=== PATIENT | male | born 1950 | race Caucasian/White ===

== ENCOUNTER 2021-09-01 14:31 | Inpatient (IN) | payer MEDICARE ==
[~2021-09-01] VITALS: Ht 185.4 cm; Wt 127.0 kg
--- NOTE | 2021-09-01 14:35 | NUR ---
DR MONAE AT BEDSIDE
--- NOTE | 2021-09-01 14:35 | NUR ---
BETH MOSS [address] [facility] "told a staff that he was having SI last tue with a plan to shoot self. Pt is bedbound and no access to weapon". TO ER BED 4, TASIA TO MONITOR, CHANGED TO HOSP GOWN, WARM BLANKET PROVIDED. AWAITING MD OSEI
[2021-09-01] MEDS ORDERED: HYDR100T27 PO (15:08)
[2021-09-01] MEDS ORDERED: TAMS-12 PO (15:08)
[2021-09-01] MEDS ORDERED: LOPE2CAP14 PO (15:08)
[2021-09-01] MEDS ORDERED: VALS320T16 PO (15:08)
[2021-09-01] MEDS ORDERED: FURO-144 PO (15:08)
[2021-09-01] MEDS ORDERED: BUPR-54 PO (15:08)
[2021-09-01] MEDS ORDERED: LIRA0.6P SQ (15:08)
[2021-09-01] MEDS ORDERED: MAG30ORA PO (15:08)
[2021-09-01] MEDS ORDERED: DULO60CA64 PO (15:08)
[2021-09-01] MEDS ORDERED: METH750T3 PO (15:08)
[2021-09-01] MEDS ORDERED: AMLO-213 PO (15:08)
[2021-09-01] MEDS ORDERED: ACET-2605 PO (15:08)
[2021-09-01] MEDS ORDERED: ACET-868 PO (15:08)
[2021-09-01] MEDS ORDERED: ROSU20TA32 PO (15:08)
[2021-09-01] MEDS ORDERED: DICL100G26 TP (15:08)
[2021-09-01] MEDS ORDERED: MAGN400O6 PO (15:08)
[2021-09-01] MEDS ORDERED: DOCU-141 PO (15:08)
[2021-09-01] MEDS ORDERED: CARV12.52 PO (15:08)
[2021-09-01 16:04] LABS: BASOPHILS % (AUTO) 0.3 % (0.0-2.0); EOSINOPHILS % (AUTO) 4.1 % (0.0-6.0); HEMATOCRIT 38 % (39-51); HEMOGLOBIN 12.7 g/dL (13.5-17.5); LYMPHOCYTES # (AUTO) 1.1 K/uL (0.8-4.8); LYMPHOCYTES % (AUTO) 14.6 % (20.0-44.0); MEAN CORPUSCULAR HGB CONC 34 g/dl (31.0-36.0); MEAN CORPUSCULAR VOLUME 84 fL (80-96); MONOCYTES # (AUTO) 0.9 K/uL (0.1-1.30); MONOCYTES % (AUTO) 11.9 % (2.0-12.0); NEUTROPHILS # (AUTO) 5.2 K/uL (1.8-8.9); NEUTROPHILS % (AUTO) 69.1 % (43.0-81.0); PLATELET COUNT (AUTO) 191 K/uL (150-450); WHITE BLOOD COUNT (AUTO) 7.5 K/uL (4.3-11.0)
--- NOTE | 2021-09-01 16:23 | NUR ---
URINE SAMPLE COLLECTED VIA STRAIGHT CATHETER, SENT TO LAB
[2021-09-01 16:51] LABS: CALCIUM, SERUM 8.4 mg/dL (8.5-10.1); CARBON DIOXIDE 27 mmol/L (21-32); CHLORIDE 104 mmol/L (98-107); GLUCOSE 95 mg/dL (74-106); POTASSIUM 3.4 mmol/L (3.5-5.1); SODIUM SERUM 140 mmol/L (136-145); UREA NITROGEN, BLOOD 19 mg/dL (7-18)
[2021-09-01 17:04] LABS: ALANINE AMINOTRANSFERASE 16 U/L (12-78); ALBUMIN 3.7 g/dL (3.4-5.0); ALCOHOL, BLOOD < 3 mg/dL (0-0); ALKALINE PHOSPHATASE 56 U/L (46-116); ASPARTATE AMINOTRANSFERASE 15 U/L (15-37); BILIRUBIN,DIRECT 0.2 mg/dL (0.0-0.2); BILIRUBIN,TOTAL 1.1 mg/dL (0.2-1.0); TOTAL PROTEIN, SERUM 7.1 g/dL (6.4-8.2)
[2021-09-01 17:05] LABS: ACETAMINOPHEN < 2 ug/ml (10-30)
[2021-09-01 17:33] LABS: BILIRUBIN,URINE NEGATIVE (NEGATIVE); COLOR,URINE YELLOW (YELLOW); LEUKOCYTE ESTERASE ,URINE NEGATIVE (NEGATIVE); NITRITE, URINE NEGATIVE (NEGATIVE); PROTEIN,URINE NEGATIVE (NEGATIVE); UGLUCOSE NEGATIVE (NEGATIVE)
--- NOTE | 2021-09-01 17:39 | NUR ---
COVID SWAB DONE AND SENT TO LAB
--- NOTE | 2021-09-01 19:00 | NUR ---
CALLED CERTIFIED FORKLIFT OPERATOR, CHARLIE, AND WAS NOTIFIED THAT THE PT HAS AN ETA OF 2000
--- NOTE | 2021-09-01 19:30 | NUR ---
RECEIVED REPORT FROM JEFERSON MONTERROSO FOR CIARA
--- NOTE | 2021-09-01 19:46 | NUR ---
PT RESTING COMFORTABLY IN BED, PROVIDED HIM WITH FOOD. WILL CONTINUE TO MONITOR
--- NOTE | 2021-09-01 19:55 | NUR ---
PRODUCT DEVELOPMENT ASSISTANT PINKY AT BEDSIDE
--- NOTE | 2021-09-01 20:23 | NUR ---
HOLD 5150 09/01/2021 @ 2013 BY CHARLIE OSEI
--- NOTE | 2021-09-01 20:33 | NUR ---
REPORT GIVEN TO FAA RN FOR CIARA
[2021-09-01] MEDS ORDERED: LORAZEPAM 0.5 MG TABLET PO PRN (21:30)
[2021-09-01] MEDS ORDERED: MAGNESIUM HYDROXIDE 30 ML UDC PO PRN (21:30)
[2021-09-01] MEDS ORDERED: BLOOD SUGAR DIAGNOSTIC 1 EACH STRIP IN ONE (21:30)
[2021-09-01] MEDS ORDERED: MAG HYDROX/AL HYDROX/SIMETH 30 ML UDC PO PRN (21:30)
[2021-09-01] MEDS ORDERED: POTASSIUM CHLORIDE 20 MEQ TAB.PRT.SR PO ONE (23:00)
[2021-09-01] MEDS ORDERED: METHOCARBAMOL (750MG) 750 MG TABLET PO PRN (23:30)
[2021-09-01] MEDS ORDERED: DOCUSATE SODIUM 100 MG CAPSULE PO PRN (23:30)
--- NOTE | 2021-09-02 03:02 | NUR ---
GPS ARCH PAD CEMENTER NOTES: RECEIVED A 70-Y/O MALE FROM ER ORIGINALLY FROM SNF. PATIENT IS ON A 5150 FOR DTS. HOLD WAS PLACED ON 09/01/21 AT 2013. PER HOLD, PATIENT WAS BROUGHT TO [facility] ER FROM [facility] D/T SUICIDAL IDEATION AND DEPRESSION. UPON FACE TO FACE EVALUATION, PATIENT IS ALERT AND ORIENTED X3, DISORGANIZED, PASSIVE, TIRED, LABILE, GUARDED, BLE WEAKNESS/UNABLE TO AMBULATE, INCONTINENT. PATIENT REFUSED TO SIGN ALL ADMISSION PAPERWORK, PER PATIENT HE IS TIRED. SKIN ASSESSMENT DONE, PICTURES TAKEN AND PLACED IN PATIENT CHART. PATIENT DENIES SI AT THIS TIME. DENIES PAIN. [id number], MRSA PENDING. PATIENT HANDBOOK AND PRESCRIPTION MEDICATIONS GUIDE GIVEN TO PATIENT. PATIENT HAS BEEN ORIENTED TO UNIT POLICY. BELONGINGS WERE INVENTORIED AND CHECKED FOR CONTRABAND. OFFERED PNEUMONIA VACCINE BUT PATIENT REFUSED. PATIENT IS UNDER THE PSYCHIATRIC CARE OF DR. YOUNG AND MEDICAL CARE OF SRINIVASA HUNTER. PATIENT BROTHER HORTENCIA CALLED AND INFORMED OF PATIENT ADMISSION. BED IN LOW LOCKED POSITION. SIDE RAILS UP X2. SAFETY PRECAUTIONS MAINTAINED. ALL PATIENT CARE NEEDS HAVE BEEN MET ANTICIPATED. WILL CONTINUE TO MONITOR Q15 MINS FOR MOOD, SAFETY AND BEHAVIOR.
[2021-09-02 05:38] VITALS: BP 130/68
[2021-09-02 07:28] LABS: ALANINE AMINOTRANSFERASE 13 U/L (12-78); ALBUMIN 3.4 g/dL (3.4-5.0); ALKALINE PHOSPHATASE 61 U/L (46-116); ASPARTATE AMINOTRANSFERASE 11 U/L (15-37); BILIRUBIN,TOTAL 0.7 mg/dL (0.2-1.0); CARBON DIOXIDE 15 mmol/L (21-32); CHLORIDE 108 mmol/L (98-107); CREATININE 1.1 mg/dL (0.6-1.3); GLUCOSE 112 mg/dL (74-106); POTASSIUM 3.6 mmol/L (3.5-5.1); SODIUM SERUM 142 mmol/L (136-145); TOTAL PROTEIN, SERUM 7.1 g/dL (6.4-8.2); UREA NITROGEN, BLOOD 23 mg/dL (7-18)
[2021-09-02 07:50] LABS: THYROID STIMULATING HORMONE 1.536 uIU/mL (0.358-3.74)
[2021-09-02 08:00] VITALS: BP 149/90
[2021-09-02] MEDS: AMLODIPINE BESYLATE 10 MG TABLET PO SCH (08:41)
[2021-09-02] MEDS: CARVEDILOL 12.5 MG TABLET PO SCH ×2 (08:42→21:24)
[2021-09-02] MEDS: hydrALAZINE HCL 50 MG TABLET PO SCH ×2 (08:42→21:24)
[2021-09-02] MEDS: VALSARTAN 80 MG TABLET PO SCH (08:43)
[2021-09-02] MEDS ORDERED: LIRAGLUTIDE 0.6 MG SQ SCH (09:00)
--- NOTE | 2021-09-02 09:49 | NUR ---
DODIE Initial Discharge Plan: Patient currently resides at a correction [facility] located at [address] [place] [address]; ([phone]). Patient would want to return back to his correction home when he is ready for discharge. DODIE will coordinate discharge with MD, pt, and family for appropriate placement.
--- NOTE | 2021-09-02 09:49 | NUR ---
DODIE Clinical Note: Patient placed on a 5150 hold for danger to himself. Patient was depressed at his facility and had suicidal thoughts. Patient currently resides at a [facility] located at [address] [place] [address]; ([phone]). Patient would want to return back to his half-way home when he is ready for discharge.
--- NOTE | 2021-09-02 10:00 | NUR ---
SW Facility Contact: SW contacted [facility] ([phone]) and was transferred to [facility], voicemail, this freelance copywriter left a detailed voicemail to contact this SW back if pt is welcomed back or not.
--- NOTE | 2021-09-02 10:01 | NUR ---
DODIE Family Contact: DODIE contacted patient's brother Jayant ([phone]) and the phone number was unable.
[2021-09-02] MEDS: BUPROPION XL 150 MG TAB.ER.24 PO SCH (12:25)
[2021-09-02] MEDS: DULOXETINE HCL 30 MG CAPSULE.DR PO SCH (12:25)
--- NOTE | 2021-09-02 13:27 | NUR ---
DODIE Family Contact: SW contacted patient's brother Jayant ([phone]) and spoke to someone and requested to speak to Jayant and he stated that he is not Jayant and turned the phone off on this proposal writer. SW attempted to contact again to clarify but he did not corn picker. DODIE unable to leave a voicemail.
--- NOTE | 2021-09-02 13:29 | NUR ---
DODIE Family Contact: DODIE contacted patient's brother Jayant ([phone]) and was able to leave a detailed voicemail.
--- NOTE | 2021-09-02 14:53 | NUR ---
Facility Contact: DODIE contacted Vandana admin ([phone]) from [facility] who stated that they cannot provide the appropriate care for pt and would need a nursing facility. DODIE stated this senior technical writer will attempt to find him a nursing facility, however, if unable to then pt would have to return back to his snf home. She was agreeable with this and stated if this senior technical writer is unable to find placement she will come to assess pt prior to dc.
[2021-09-02 16:00] VITALS: BP 140/70
--- NOTE | 2021-09-02 18:33 | NUR ---
RN-NOTES PATIENT LYING IN BED AWAKE,ALERT X3 GUARDED,NO ACUTE DISTRESS NOTED. COMPLIANT WITH MEDICATIONS.NEEDS MAXIMUM ASSIST WITH ADL'S. PREFERS TO STAY IN THE ROOM SLEEPING REFUSED GROUPS. ALL NEEDS ATTENDED AND ANTICIPATED. WILL CONT. MONITORING FOR SAFETY AND BEHAVIOR. WILL ENDORSE TO INCOMING SHIFT FOR CONTINUITY OF CARE.
[2021-09-02 20:00] VITALS: BP 131/68
[2021-09-02] MEDS: ATORVASTATIN 40 MG TABLET PO SCH (21:24)
[2021-09-02] MEDS: TAMSULOSIN 0.4 MG CAP.SR.24H PO SCH (23:24)
[2021-09-03 08:00] VITALS: BP 133/79
--- NOTE | 2021-09-03 08:25 | NUR ---
SNF Referral: SW sent clinicals to Lisa melendez ([phone]) for placement option. SW sent H & P, progress notes, and medication list.
[2021-09-03] MEDS: DULOXETINE HCL 30 MG CAPSULE.DR PO SCH (08:39)
[2021-09-03] MEDS: BUPROPION XL 150 MG TAB.ER.24 PO SCH (08:39)
[2021-09-03] MEDS: hydrALAZINE HCL 50 MG TABLET PO SCH ×2 (08:39→21:18)
[2021-09-03] MEDS: VALSARTAN 80 MG TABLET PO SCH (08:39)
[2021-09-03] MEDS: AMLODIPINE BESYLATE 10 MG TABLET PO SCH (08:40)
[2021-09-03] MEDS: CARVEDILOL 12.5 MG TABLET PO SCH ×2 (08:40→21:22)
[2021-09-03 16:00] VITALS: BP 101/69
--- NOTE | 2021-09-03 18:15 | NUR ---
RN-NOTES PATIENT LYING IN BED AWAKE,ALERT X3 GUARDED,REFUSED GROUPS ACTIVITIES DESPITE ENCOURAGEMENT. PREFERS TO STAY IN THE ROOM AND READ BOOKS.NO ACUTE DISTRESS NOTED. COMPLIANT WITH MEDICATIONS.NEEDS MAXIMUM ASSIST WITH ADL'S.ABLE TO REPOSITIONED SELF IN BED AND ABLE TO MAKE NEEDS KNOWN TO THE STAFF. ALL NEEDS ATTENDED AND ANTICIPATED. WILL CONT. MONITORING FOR SAFETY AND BEHAVIOR.WILL ENDORSE TO INCOMING NURSE FOR CONTINUITY OF CARE.
[2021-09-03 20:00] VITALS: BP 144/71
[2021-09-03 20:05] VITALS: BP 144/71
--- NOTE | 2021-09-03 20:31 | NUR ---
GPS RN NOTE, PHARMACY CALLED AND STATED THAT THEY DON'T CARRY VICTOZA 0.6MG SQ DAILY. PHARMACY ASKED IF WE COULD CALL PATIENT FACILITY AND HAVE VICTOZA DELIVERED. CALLED [facility] AND ASK IF THEY COULD DELIVER PATIENT VICTOZA BUT THEY SAID NO WE DON'T DELIVER MEDICATIONS. PAGED Sealed [facility] AND INFORMED BLANCA HUNTER NP OF MY FINDINGS AND LAB RESULTS. BLANCA HUNTER NP ORDERED TO DISCONTINUE VICTOZA 0.6MG PO DAILY AND GAVE NO NEW ORDER TO REPLACE PATIENT'S VICTOZA DUE TO PATIENT'S A1C RESULT OF 5.8. CALLED PHARMACY AND REQUESTED THEM TO DISCONTINUE VICTOZA UNDER BLANCA HUNTER. ALL ORDERS NOTED AND CARRIED OUT WILL CONTINUE TO MONITOR THIS PATIENT WITH THE HELP OF STAFF.
[2021-09-03] MEDS: ATORVASTATIN 40 MG TABLET PO SCH (21:30)
[2021-09-03] MEDS: TAMSULOSIN 0.4 MG CAP.SR.24H PO SCH (21:31)
[2021-09-04 08:00] VITALS: BP 143/72
[2021-09-04] MEDS: BUPROPION XL 150 MG TAB.ER.24 PO SCH (08:11)
[2021-09-04] MEDS: hydrALAZINE HCL 50 MG TABLET PO SCH ×2 (08:11→21:14)
[2021-09-04] MEDS: DULOXETINE HCL 30 MG CAPSULE.DR PO SCH (08:11)
[2021-09-04] MEDS: CARVEDILOL 12.5 MG TABLET PO SCH ×2 (08:12→21:20)
[2021-09-04] MEDS: VALSARTAN 80 MG TABLET PO SCH (08:13)
[2021-09-04] MEDS: AMLODIPINE BESYLATE 10 MG TABLET PO SCH (08:22)
--- NOTE | 2021-09-04 09:35 | NUR ---
Court Notification: DODIE contacted patient's brother Jayant ([phone]) and left a voicemail of [phone].
--- NOTE | 2021-09-04 09:38 | NUR ---
SNF Referral: DODIE sent clinicals to Mary melendez ([phone]) to help with placement. DODIE sent H & P, progress notes, and medication list.
--- NOTE | 2021-09-04 09:38 | NUR ---
SNF Contact: SW spoke with Lisa melendez ([phone]) who denied pt due to not being able to handle pt at their facility.
--- NOTE | 2021-09-04 11:57 | NUR ---
Court Hearing: Patient's court hearing for 0340 was today and it was upheld for GD.
--- NOTE | 2021-09-04 11:58 | NUR ---
SNF Contact: SW spoke with Mary melendez ([phone]) who stated pt is accepted at [facility].
--- NOTE | 2021-09-04 12:58 | NUR ---
Facility Contact: DODIE contacted Vandana admin ([phone]) and notified that pt is accepted a [facility] and she reported that she had a conversation with pt stating that they cannot provide the care. Vandana stated that she will speak to pt on 09/08 when she is back from her vacation.
--- NOTE | 2021-09-04 13:45 | NUR ---
DODIE Family Contact: DODIE received a call from patient's daughter Adele ([phone]) insisting and yelling at this securities underwriter that patient needs to be transferred to [facility]. DODIE explained the process. However, Adele was not understanding. DODIE reported lateral transfers are not possible when pt is on a 14 day hold it is while pt is on a 5150. DODIE explained if [facility] has an accepting bed or psychiatrist that is when transfer can happen. Daughter was still not understanding.
--- NOTE | 2021-09-04 15:28 | NUR ---
DODIE Note: SW spoke with pt in regards to DODIE maradiaga ([phone]) who stated that pt cannot go back to [facility]. DODIE explained to pt and pt requested to speak to Vandana. DODIE stated that Vandana is on vacation and will be back Friday 09/08 and she will speak to pt on Tuesday. DODIE gave him option that he is accepted at [facility]. Pt prefers to go back to [facility]. Pt would want to speak ti Vandana maradiaga from [facility] before making a decision.
[2021-09-04 16:00] VITALS: BP 144/67
--- NOTE | 2021-09-04 18:49 | NUR ---
RN-NOTES PATIENT LYING IN BED AWAKE,ALERT X3 GUARDED,NO ACUTE DISTRESS NOTED. COMPLIANT WITH MEDICATIONS.NEEDS MAXIMUM ASSIST WITH ADL'S. PREFERS TO STAY IN THE ROOM SLEEPING REFUSED GROUPS.ABLE TO MAKE NEEDS KNOWN TO THE STAFF. ALL NEEDS ATTENDED AND ANTICIPATED. WILL CONT. MONITORING FOR SAFETY AND BEHAVIOR. WILL ENDORSE TO INCOMING SHIFT FOR CONTINUITY OF CARE.
[2021-09-04 19:45] VITALS: BP 146/72
[2021-09-04 20:00] VITALS: BP 146/72
[2021-09-04] MEDS: TAMSULOSIN 0.4 MG CAP.SR.24H PO SCH (21:28)
[2021-09-04] MEDS: ATORVASTATIN 40 MG TABLET PO SCH (21:28)
[2021-09-05 08:00] VITALS: BP 137/82
[2021-09-05] MEDS: DULOXETINE HCL 30 MG CAPSULE.DR PO SCH (08:46)
[2021-09-05] MEDS: hydrALAZINE HCL 50 MG TABLET PO SCH ×2 (08:50→21:00)
[2021-09-05] MEDS: VALSARTAN 80 MG TABLET PO SCH (08:50)
[2021-09-05] MEDS: AMLODIPINE BESYLATE 10 MG TABLET PO SCH (08:51)
[2021-09-05] MEDS: CARVEDILOL 12.5 MG TABLET PO SCH ×2 (08:51→21:00)
[2021-09-05] MEDS: BUPROPION XL 150 MG TAB.ER.24 PO SCH (08:52)
--- NOTE | 2021-09-05 09:00 | NUR ---
GPS/RN RECEIVED PT RESTING IN HIS ROOM, NO S/SX OF ACUTE DISTRESS NOTED, NEEDS ASSISTANCE WITH ADL'S. MORNING MEDS COMPLIANT SAFETY PRECAUTIONS IN PLACE.ALL NEEDS ATTENDED AND ANTICIPATED WILL CONTINUE TO MONITOR Q15MIN ROUNDS FOR SAFETY AND BEHAVIOR.
[2021-09-05 16:00] VITALS: BP 131/69
[2021-09-05] MEDS: ACETAMINOPHEN 325 MG TABLET PO PRN (18:31)
[2021-09-05 20:06] VITALS: BP 137/68
[2021-09-05 20:29] VITALS: BP 137/68
[2021-09-05] MEDS: TAMSULOSIN 0.4 MG CAP.SR.24H PO SCH (21:31)
[2021-09-05] MEDS: ATORVASTATIN 40 MG TABLET PO SCH (21:32)
--- NOTE | 2021-09-05 21:38 | NUR ---
GPS RN NOTE: MEDICATION REFUSAL PATIENT REFUSED TO TAKE APRESOLINE AND COREG TONIGHT. PATIENT'S BP IS 124/60, HR 61. PATIENT PREFERS TO TAKE SLEEPING MEDICINE TONIGHT INSTEAD. WILL CONTINUE TO MONITOR.
[2021-09-05] MEDS: TEMAZEPAM 7.5 MG CAPSULE PO PRN (21:42)
--- NOTE | 2021-09-05 21:43 | NUR ---
GPS RN NOTE: INSOMNIA PATIENT C/O INABILITY TO SLEEP AND WANTED TO TAKE SLEEPING MEDICINE TONIGHT. PER PATIENT REQUEST PRN RESTORIL 7.5 MG 1 CAP PO ADMINISTERED. WILL CONTINUE TO MONITOR.
--- NOTE | 2021-09-06 07:34 | NUR ---
RN NOTE- RECEIVED PT RESTING IN HIS ROOM, NO S/SX OF ACUTE DISTRESS NOTED, NEEDS ASSISTANCE WITH ADL'S. MORNING MEDS COMPLIANT SAFETY PRECAUTIONS IN PLACE.ALL NEEDS ATTENDED AND ANTICIPATED WILL CONTINUE TO MONITOR Q15MIN ROUNDS FOR SAFETY AND BEHAVIOR.
[2021-09-06 08:00] VITALS: BP 151/86
[2021-09-06] MEDS: DULOXETINE HCL 30 MG CAPSULE.DR PO SCH (09:01)
[2021-09-06] MEDS: VALSARTAN 80 MG TABLET PO SCH (09:01)
[2021-09-06] MEDS: BUPROPION XL 150 MG TAB.ER.24 PO SCH (09:01)
[2021-09-06] MEDS: AMLODIPINE BESYLATE 10 MG TABLET PO SCH (09:01)
[2021-09-06] MEDS: CARVEDILOL 12.5 MG TABLET PO SCH ×2 (09:02→20:15)
[2021-09-06] MEDS: hydrALAZINE HCL 50 MG TABLET PO SCH ×2 (09:05→20:14)
[2021-09-06] MEDS: ACETAMINOPHEN 325 MG TABLET PO PRN ×2 (13:52→20:12)
--- NOTE | 2021-09-06 13:52 | NUR ---
RN NOTE- GENERALIZED PAIN. TYLENOL 650 MG ADMINISTERED
[2021-09-06 16:00] VITALS: BP 120/59
[2021-09-06 20:26] VITALS: BP 149/68
[2021-09-06] MEDS: TEMAZEPAM 7.5 MG CAPSULE PO PRN (21:06)
[2021-09-06] MEDS: TAMSULOSIN 0.4 MG CAP.SR.24H PO SCH (21:06)
[2021-09-06] MEDS: ATORVASTATIN 40 MG TABLET PO SCH (21:06)
[2021-09-07 08:00] VITALS: BP 143/63
[2021-09-07] MEDS: BUPROPION XL 150 MG TAB.ER.24 PO SCH (09:09)
[2021-09-07] MEDS: DULOXETINE HCL 30 MG CAPSULE.DR PO SCH (09:09)
[2021-09-07] MEDS: CARVEDILOL 12.5 MG TABLET PO SCH ×2 (09:10→21:06)
[2021-09-07] MEDS: AMLODIPINE BESYLATE 10 MG TABLET PO SCH (09:10)
[2021-09-07] MEDS: hydrALAZINE HCL 50 MG TABLET PO SCH ×2 (09:10→21:06)
[2021-09-07] MEDS: VALSARTAN 80 MG TABLET PO SCH (09:10)
[2021-09-07 16:00] VITALS: BP 121/67
--- NOTE | 2021-09-07 19:30 | NUR ---
GPS RN NOTES RECEIVED PATIENT LYING IN BED AWAKE. FEMALE VISITOR ON BEDSIDE. A/O X3 ANXIOUS. DISHEVELED. NOT IN APPARENT DISTRESS. DENIES PAIN AT THIS TIME. NON-AMBULATORY. WILL CONTINUE TO MONITOR Q15MIN ROUNDS FOR SAFETY AND BEHAVIOR.
[2021-09-07 20:00] VITALS: BP 136/61
--- NOTE | 2021-09-07 21:00 | NUR ---
GPS RN NOTES HYDRALAZINE 50 MG - 8 TABS AVAILABLE, TOOK 2 TABS, 6 LEFT COREG 12.5 MG - 8 TABS AVAILABLE, TOOK 1 TAB, 7 LEFT
[2021-09-07] MEDS: TAMSULOSIN 0.4 MG CAP.SR.24H PO SCH (21:06)
[2021-09-07] MEDS: ATORVASTATIN 40 MG TABLET PO SCH (21:06)
[2021-09-07] MEDS: TEMAZEPAM 7.5 MG CAPSULE PO PRN (21:16)
--- NOTE | 2021-09-08 06:41 | NUR ---
GPS RN NOTES PATIENT LYING IN BED AWAKE. A/O X3 CALM, DISHEVELED, WITHDRAWN, DEPRESSED MOOD. NO C/O PAIN AT THIS TIME. NO S/S OF DISTRESS NOTED. BREATHING EVEN AND NON-LABORED ON ROOM AIR. DENIES SI/HI AT THIS TIME. ALL NEEDS ANTICIPATED. NON-AMBULATORY. SAFETY PRECAUTIONS IN PLACE: BED LOW AND LOCKED, SIDE RAILS UP X2. WILL CONT. MONITORING FOR SAFETY AND BEHAVIOR. WILL ENDORSE TO AM NURSE FOR CONTINUITY OF CARE.
[2021-09-08 06:57] VITALS: BP 136/61
[2021-09-08 08:00] VITALS: BP 154/70
--- NOTE | 2021-09-08 08:40 | NUR ---
Facility Contact: DODIE contacted Vandana admin ([phone]) and she stated that she will be evaluating pt 09/08 at 1PM.
[2021-09-08] MEDS: VALSARTAN 80 MG TABLET PO SCH (08:43)
[2021-09-08] MEDS: DULOXETINE HCL 30 MG CAPSULE.DR PO SCH (08:43)
[2021-09-08] MEDS: CARVEDILOL 12.5 MG TABLET PO SCH ×2 (08:44→20:49)
[2021-09-08] MEDS: BUPROPION XL 150 MG TAB.ER.24 PO SCH (08:44)
[2021-09-08] MEDS: hydrALAZINE HCL 50 MG TABLET PO SCH ×2 (08:44→20:49)
[2021-09-08] MEDS: AMLODIPINE BESYLATE 10 MG TABLET PO SCH (08:45)
--- NOTE | 2021-09-08 13:43 | NUR ---
Facility Contact: DODIE contacted Vandana admin ([phone]) came to the hospital to evaluate pt and stated he cannot return back. Pt was understanding. Vandana would want this ghost writer to fax to [facility].
--- NOTE | 2021-09-08 13:43 | NUR ---
SNF Referral: DODIE sent clinicals to Mao ([phone]) for [facility]. SW sent H & P, progress notes, and medication list.
--- NOTE | 2021-09-08 14:50 | NUR ---
COURT: DODIE RECEIVED A CALL FROM AGUEDA ([phone]) WHO STATED PT WANTS TO FILE FOR WRIT.
--- NOTE | 2021-09-08 14:51 | NUR ---
WRIT: SW GAVE PT WRIT DOCUMENTS AND PT SIGNED FOR WRIT. SW PLACED IN PT'S CHART.
--- NOTE | 2021-09-08 14:53 | NUR ---
SNF Contact: SW received a call from Mao ([phone]) for [facility] who stated that pt is accepted.
--- NOTE | 2021-09-08 14:53 | NUR ---
DODIE Note: SW spoke with pt and stated pt is accepted at [facility]. He was agreeable of this.
--- NOTE | 2021-09-08 15:11 | NUR ---
DODIE Family Contact: DODIE contacted patient's brother Jayant ([phone]) and notified of patient's discharge being accepted at [facility]. He is aware and agreeable of this plan.
[2021-09-08 16:00] VITALS: BP 143/74
[2021-09-08] MEDS: ATORVASTATIN 40 MG TABLET PO SCH (21:25)
[2021-09-08] MEDS: TAMSULOSIN 0.4 MG CAP.SR.24H PO SCH (21:25)
[2021-09-08 23:54] VITALS: BP 129/66
[2021-09-09 08:00] VITALS: BP 142/79
--- NOTE | 2021-09-09 08:16 | NUR ---
DODIE Discharge Note: Patient will be discharged to [facility] facility [facility] [place] [address] [place] [address]; ([phone]). Please arrange ambulance at 11AM. DODIE attempted to contact pts Jayant ([phone]) is aware and agreeable of discharge. DODIE spoke with Mao melendez ([phone]) who stated patient will be accepted today. Patient is alert and oriented x3 and is unable to plan for self-care. Patient denies any suicidal or homicidal ideations. Patient denies visual/auditory hallucinations. Patient is aware and agreeable with discharge plans. Patient will follow-up with (Psychiatrist) Dr. Baca located at [address] [address]; and (Clinical Trial Educator) Dr. Aguilar located at [address], [place] [address]; ([phone]). Patient presents with euthymic mood and congruent affect.
[2021-09-09] MEDS: hydrALAZINE HCL 50 MG TABLET PO SCH (08:51)
[2021-09-09] MEDS: BUPROPION XL 150 MG TAB.ER.24 PO SCH (08:51)
[2021-09-09] MEDS: CARVEDILOL 12.5 MG TABLET PO SCH (08:52)
[2021-09-09] MEDS: DULOXETINE HCL 30 MG CAPSULE.DR PO SCH (08:52)
[2021-09-09] MEDS: VALSARTAN 80 MG TABLET PO SCH (08:52)
[2021-09-09] MEDS: AMLODIPINE BESYLATE 10 MG TABLET PO SCH (08:53)
[2021-09-09 16:00] VITALS: BP 151/69
--- NOTE | 2021-09-09 16:25 | NUR ---
GPS PANEL MACHINE OPERATOR NOTE: PATIENT 70 Y/O MALE DISCHARGE TO [facility] VIA AMBULANCE IN STABLE CONDITION, NO S/S DISTRESS NOTED.PATIENT COOPERATIVE AND COMPLIANT MEDICATIONS, PATIENT DENIES SI/HI/AVH DENIES FEELING DEPRESSED. INSTRUCTED TP GO TO THE CLOSEST ER IF DEVELOPING SI . VSS, DENIES PAIN OR ANY DISCOMFORT . EXIT CARE DONE PRINTED,SIGN AND GIVEN TO PATIENT .MEDICATIONS RECONCILED EXPLAIN TO PATIENT. PATIENT AWARE AND AGREED TO TRANSFER. SKIN ASSESSMENT DONE NO WOUND NOTED GENERALIZED SCABS ,PICTURE PLACED IN THE CHART. ALL BELONGINGS AND VALUABLES RETURNED TO PATIENT.
== END 2021-09-09 16:05 | DRG 881 ==
LOC: ER 14:40 → GPS 20:03
PROVIDERS: ADMIT Nurse Practitioner Psychiatric/Mental Health; ATTEND Internal Medicine
DX: F32.9 Major depressive disorder, single episode, unspecified (principal); R45.851 Suicidal ideations; G12.21 Amyotrophic lateral sclerosis; I10 Essential (primary) hypertension; Z79.899 Other long term (current) drug therapy; Z79.84 Long term (current) use of oral hypoglycemic drugs; E11.9 Type 2 diabetes mellitus without complications; D64.9 Anemia, unspecified; E87.6 Hypokalemia; E83.51 Hypocalcemia
CPT/HCPCS: 36415; 80048-TC; 80053-TC; 80061-TC; 80076-TC; 82962-TC; 83540-TC; 84439-TC; 84443-TC; 85025-TC; 87081-TC; 97112-TC; 97530-TC; C9803; G0480

== ENCOUNTER 2021-11-03 21:18 | Emergency (ER) | payer MEDICARE, BC ==
[~2021-11-03] VITALS: Ht 185.4 cm; Wt 127.0 kg
[~2021-11-03 21:18] MED LIST: ACET-2605 PO; ACET-868 PO; AMLO-213 PO; BUPR-54 PO; CARV12.52 PO; DICL100G26 TP; DOCU-141 PO; DULO60CA64 PO; FURO-144 PO; HYDR100T27 PO; LIRA0.6P SQ; LOPE2CAP14 PO; MAG30ORA PO; MAGN400O6 PO; METH750T3 PO; ROSU20TA32 PO; TAMS-12 PO; VALS320T16 PO
--- NOTE | 2021-11-03 21:40 | NUR ---
BIBPA FROM SNF C/O N/V STARTED EARLIER TODAY WITH DIZZINESS. PATIENT ALERT AND ORIENTED X3 IN BED 03 AWAITING MD OSEI ON MONITOR AND POX.
[2021-11-03] MEDS ORDERED: ONDANSETRON HCL/PF - ER 4 MG/2 ML VIAL IV ONE (22:00)
[2021-11-03] MEDS ORDERED: ONDANSETRON HCL/PF 4 MG/2 ML VIAL ONE (22:16)
--- NOTE | 2021-11-03 22:24 | NUR ---
BLOOD COLLECTED AND SENT TO LAB
[2021-11-03 23:31] LABS: BASOPHILS % (AUTO) 0.2 % (0.0-2.0); EOSINOPHILS % (AUTO) 3.8 % (0.0-6.0); HEMATOCRIT 35 % (39-51); LYMPHOCYTES # (AUTO) 1.1 K/uL (0.8-4.8); LYMPHOCYTES % (AUTO) 13.7 % (20.0-44.0); MEAN CORPUSCULAR HGB CONC 34 g/dl (31.0-36.0); MEAN CORPUSCULAR VOLUME 84 fL (80-96); MONOCYTES # (AUTO) 0.9 K/uL (0.1-1.30); MONOCYTES % (AUTO) 11.1 % (2.0-12.0); NEUTROPHILS # (AUTO) 5.5 K/uL (1.8-8.9); NEUTROPHILS % (AUTO) 71.2 % (43.0-81.0); PLATELET COUNT (AUTO) 190 K/uL (150-450); RED BLOOD CELL COUNT(AUTO) 4.22 MIL/uL (4.5-6.0); WHITE BLOOD COUNT (AUTO) 7.7 K/uL (4.3-11.0)
[2021-11-03 23:38] LABS: CALCIUM, SERUM 8.4 mg/dL (8.5-10.1); CARBON DIOXIDE 27 mmol/L (21-32); CHLORIDE 105 mmol/L (98-107); GLUCOSE 102 mg/dL (74-106); POTASSIUM 3.2 mmol/L (3.5-5.1); SODIUM SERUM 139 mmol/L (136-145); UREA NITROGEN, BLOOD 27 mg/dL (7-18)
[2021-11-04] MEDS ORDERED: ONDA4TAB5 PO (00:27)
--- NOTE | 2021-11-04 00:45 | NUR ---
TRANSPORTATION ARRANGED WITH [facility] ETA 30 MIN
--- NOTE | 2021-11-04 00:58 | NUR ---
CALLED FACILITY MULTIPLE TIMES FOR REPORT, NO ANSWER.
--- NOTE | 2021-11-04 01:18 | NUR ---
[facility] ARRIVED FOR COUNTER SALES REPRESENTATIVE , REPORT GIVEN
--- NOTE | 2021-11-04 01:23 | NUR ---
ACCORDING TO THE RN, SHE IS THE ONLY ONE WORKING AND CANNOT ACCEPT ANY NEW ADMISSIONS UNTIL AFTER 7AM. SHE WILL CALL HER DON AND VERIFY WITH US.
--- NOTE | 2021-11-04 01:35 | NUR ---
REPORT GIVEN TO LOC MEYER
[2021-11-04 01:36] VITALS: BP 139/98
--- NOTE | 2021-11-04 01:36 | NUR ---
[facility] TRANSFERRING PATIENT BACK TO FACILITY.
== END 2021-11-04 01:37 ==
LOC: ER 21:20
DX: R11.2 Nausea with vomiting, unspecified (principal); R42 Dizziness and giddiness; I10 Essential (primary) hypertension; E11.9 Type 2 diabetes mellitus without complications; Z79.899 Other long term (current) drug therapy
CPT/HCPCS: 99285; 96374; 71045; 93005; 85025; 80048; 36415; 84484; J2405 ×2

== ENCOUNTER 2021-12-02 17:09 | Emergency (ER) | payer MEDICARE, BC ==
[~2021-12-02] VITALS: Ht 182.9 cm; Wt 95.3 kg
[~2021-12-02 17:09] MED LIST changes: +ONDA4TAB5 PO
--- NOTE | 2021-12-02 17:54 | NUR ---
DR HILL AT BEDSIDE
--- NOTE | 2021-12-02 17:55 | NUR ---
[id number] FROM CLINIC C/O NAUSEA AND VOMITING X 2 HOURS DENIES ABDOMINAL [place] CORONER. WAS GIVEN ZOFRAN ODT, UNABLE TO TOLERATE. TO ER BED 9, HOOKED TO MONITOR, CHANGED TO HOSP GOWN, WARM BLANKET PROVIDED. AWAITING MD OSEI
[2021-12-02] MEDS ORDERED: ONDANSETRON HCL/PF 4 MG/2 ML VIAL IVP ONE (18:00)
[2021-12-02] MEDS ORDERED: IV NS 0.9% 1,000 ML BAG IV ONE (18:00)
[2021-12-02] MEDS ORDERED: ONDANSETRON HCL/PF 4 MG/2 ML VIAL ONE (18:16)
--- NOTE | 2021-12-02 18:23 | NUR ---
PT TAKEN TO RADIOLOGY FOR CT
[2021-12-02 19:27] LABS: CREATININE 1.1 mg/dL (0.6-1.3); POTASSIUM 3.9 mmol/L (3.5-5.1)
[2021-12-02 19:33] LABS: BILIRUBIN,DIRECT 0.2 mg/dL (0.0-0.2); BILIRUBIN,TOTAL 0.9 mg/dL (0.2-1.0); TOTAL PROTEIN, SERUM 8.3 g/dL (6.4-8.2)
--- NOTE | 2021-12-02 19:57 | NUR ---
COVID ANTIGEN SWAB COLLECTED AND SENT TO LAB
[2021-12-02 20:01] LABS: BASOPHILS % (AUTO) 0.1 % (0.0-2.0); EOSINOPHILS % (AUTO) 1.8 % (0.0-6.0); HEMATOCRIT 41 % (39-51); HEMOGLOBIN 13.9 g/dL (13.5-17.5); LYMPHOCYTES # (AUTO) 0.8 K/uL (0.8-4.8); LYMPHOCYTES % (AUTO) 6.2 % (20.0-44.0); MEAN CORPUSCULAR HGB CONC 34 g/dl (31.0-36.0); MEAN CORPUSCULAR VOLUME 84 fL (80-96); MONOCYTES # (AUTO) 0.7 K/uL (0.1-1.30); MONOCYTES % (AUTO) 5.3 % (2.0-12.0); NEUTROPHILS # (AUTO) 11.8 K/uL (1.8-8.9); NEUTROPHILS % (AUTO) 86.6 % (43.0-81.0); PLATELET COUNT (AUTO) 251 K/uL (150-450); RED BLOOD CELL COUNT(AUTO) 4.94 MIL/uL (4.5-6.0); WHITE BLOOD COUNT (AUTO) 13.6 K/uL (4.3-11.0)
[2021-12-02] MEDS ORDERED: LACT10SO3 PO (21:00)
[2021-12-02] MEDS ORDERED: ONDA4TAB5 PO (21:00)
[2021-12-02] MEDS ORDERED: AMOX-430 PO (21:00)
--- NOTE | 2021-12-02 21:17 | NUR ---
Written and verbal after care instructions given. Patient verbalizes understanding of instruction. IV removed. Catheter intact and site benign. Pressure and 4x4 applied to site. No bleeding noted.
--- NOTE | 2021-12-02 21:18 | NUR ---
NOTIFIED ZORAIDA DTR [phone] ON PT'S DC INSTRUCTIONS.
--- NOTE | 2021-12-02 21:24 | NUR ---
[facility] FOR [facility] OPERATIONS INTELLIGENCE CHIEF ETA IS [phone]
--- NOTE | 2021-12-02 23:30 | NUR ---
FOLLOWED UP WITH [facility] REGARDING PT PICKUP PER DECLAN RESENDIZ 10 TO 15 MIN
--- NOTE | 2021-12-02 23:44 | NUR ---
[facility] AT PT'S BEDSIDE FOR PT TO D/C TO [facility]
[2021-12-02 23:46] VITALS: BP 163/82
== END 2021-12-02 23:44 ==
LOC: ER 17:12
DX: R11.2 Nausea with vomiting, unspecified (principal); J18.9 Pneumonia, unspecified organism; Z20.822 Contact with and (suspected) exposure to COVID-19; K59.00 Constipation, unspecified; E86.0 Dehydration; I10 Essential (primary) hypertension; G47.33 Obstructive sleep apnea (adult) (pediatric); G12.21 Amyotrophic lateral sclerosis; M21.372 Foot drop, left foot; E11.9 Type 2 diabetes mellitus without complications; Z79.899 Other long term (current) drug therapy; Z79.84 Long term (current) use of oral hypoglycemic drugs
CPT/HCPCS: 99284; 74176; 96374; 96361; 87426; 85025; 80048; 83690; 80076; 36415; J2405; J7030; C9803

== ENCOUNTER 2022-01-20 14:06 | Inpatient (IN) | payer MEDICARE, BC ==
[~2022-01-20] VITALS: Ht 188 cm; Wt 119.3 kg
[~2022-01-20 14:06] MED LIST changes: +AMOX-430 PO; +LACT10SO3 PO
--- NOTE | 2022-01-20 14:07 | NUR ---
PRICILA 60 FROM [facility], C/O NAUSEA AND VOMITTING FOR 1 DAY, RECIEVD FLUID BY EMS PRIOR TO ARRIVAL. PT IS ATTACHED TO MONITOR. WARM BLANKET PROVIDED FOR COMFORT. AWAITING MD ORDERS.
--- NOTE | 2022-01-20 15:55 | NUR ---
DR MCCORD AT BEDSIDE
[2022-01-20] MEDS ORDERED: ONDANSETRON HCL/PF 4 MG/2 ML VIAL IVP ONE (16:00)
[2022-01-20] MEDS ORDERED: IV NS 0.9% 1,000 ML BAG IV ONE (16:00)
[2022-01-20] MEDS ORDERED: FAMOTIDINE/PF INJ 20 MG/2 ML VIAL IV ONE ×2 (16:00→16:02)
[2022-01-20] MEDS ORDERED: ONDANSETRON HCL/PF 4 MG/2 ML VIAL ONE (16:01)
[2022-01-20 16:17] LABS: BASOPHILS % (AUTO) 0.1 % (0.0-2.0); EOSINOPHILS % (AUTO) 0.1 % (0.0-6.0); HEMATOCRIT 39 % (39-51); HEMOGLOBIN 12.9 g/dL (13.5-17.5); LYMPHOCYTES # (AUTO) 0.4 K/uL (0.8-4.8); LYMPHOCYTES % (AUTO) 3.7 % (20.0-44.0); MEAN CORPUSCULAR HGB CONC 33 g/dl (31.0-36.0); MEAN CORPUSCULAR VOLUME 84 fL (80-96); MONOCYTES # (AUTO) 0.7 K/uL (0.1-1.30); MONOCYTES % (AUTO) 6.1 % (2.0-12.0); NEUTROPHILS # (AUTO) 10.6 K/uL (1.8-8.9); PLATELET COUNT (AUTO) 196 K/uL (150-450); RED BLOOD CELL COUNT(AUTO) 4.64 MIL/uL (4.5-6.0); WHITE BLOOD COUNT (AUTO) 11.8 K/uL (4.3-11.0)
--- NOTE | 2022-01-20 16:26 | NUR ---
URINE COLLECTED AND SENT
--- NOTE | 2022-01-20 16:32 | NUR ---
PT TAKEN TO CT VIA JHON
[2022-01-20 17:11] LABS: CALCIUM, SERUM 8.6 mg/dL (8.5-10.1); CARBON DIOXIDE 26 mmol/L (21-32); CHLORIDE 102 mmol/L (98-107); GLUCOSE 148 mg/dL (74-106); SODIUM SERUM 138 mmol/L (136-145); UREA NITROGEN, BLOOD 17 mg/dL (7-18)
[2022-01-20 17:22] LABS: POTASSIUM 2.8 mmol/L (3.5-5.1)
[2022-01-20] MEDS ORDERED: POTASSIUM CL. PREMIX PERIPHER. 50 ML IV STA (17:27)
[2022-01-20] MEDS ORDERED: POTASSIUM CL. PREMIX PERIPHER. 100 ML ONE (17:48)
[2022-01-20 17:57] LABS: BILIRUBIN,URINE NEGATIVE (NEGATIVE); COLOR,URINE YELLOW (YELLOW); LEUKOCYTE ESTERASE ,URINE NEGATIVE (NEGATIVE); NITRITE, URINE NEGATIVE (NEGATIVE); PH,URINE 5.5 (5.0-8.0); UGLUCOSE NEGATIVE (NEGATIVE); UROBILINOGEN,URINE 0.2 EU/dL (0.2)
--- NOTE | 2022-01-20 17:58 | NUR ---
MOVE SHEET SUBMITTED.
[2022-01-20 17:59] LABS: PROTEIN,URINE NEGATIVE (NEGATIVE)
[2022-01-20] MEDS ORDERED: ATOR40TA PO (18:07)
[2022-01-20] MEDS ORDERED: BACL10TA PO (18:07)
[2022-01-20] MEDS ORDERED: BUPR-319 PO (18:07)
--- NOTE | 2022-01-20 18:23 | NUR ---
A-1 [facility] [phone].
--- NOTE | 2022-01-20 18:33 | NUR ---
HORTENCIA (BROTHER/POA) [phone]
--- NOTE | 2022-01-20 19:14 | NUR ---
REC'D REPORT FROM LOC BURTON FOR CIARA
--- NOTE | 2022-01-20 19:15 | NUR ---
PT PLACED ON 1L O2 VIA NC FOR COMFORT DURING SLEEP
--- NOTE | 2022-01-20 21:21 | NUR ---
GAVE REPORT TO LOC AARON FOR CIARA
[2022-01-20] MEDS ORDERED: MORPHINE SULFATE INJ 2 MG/ML DISP.SYRIN IV PRN (21:30)
[2022-01-20] MEDS ORDERED: HYDROCODONE/APAP 10/325MG TABLET PO PRN (21:30)
[2022-01-20] MEDS ORDERED: MAG HYDROX/AL HYDROX/SIMETH 30 ML UDC PO PRN ×2 (21:30)
[2022-01-20] MEDS ORDERED: MINERAL OIL 133 ML (PYXIS) 1 EA ENEMA RC ONE (21:30)
[2022-01-20] MEDS ORDERED: ONDANSETRON HCL/PF 4 MG/2 ML VIAL IVP PRN (21:30)
[2022-01-20] MEDS ORDERED: ACETAMINOPHEN 325 MG TABLET PO PRN ×2 (21:30)
[2022-01-20] MEDS ORDERED: Z GUARD REMEDY 4 OZ OINT TP PRN (21:30)
[2022-01-20] MEDS ORDERED: METHOCARBAMOL (750MG) 750 MG TABLET PO PRN (21:30)
[2022-01-20] MEDS ORDERED: ZOLPIDEM TARTRATE 5 MG TABLET PO PRN (21:30)
[2022-01-20] MEDS ORDERED: ACETAMINOPHEN ES 500 MG TABLET PO PRN (21:30)
[2022-01-20] MEDS ORDERED: MAGNESIUM HYDROXIDE 30 ML UDC PO PRN ×2 (21:30)
[2022-01-20 21:50] VITALS: BP 153/77
[2022-01-20] MEDS: TAMSULOSIN 0.4 MG CAP.SR.24H PO SCH (22:00)
[2022-01-20] MEDS: ATORVASTATIN 40 MG TABLET PO SCH (22:00)
--- NOTE | 2022-01-20 22:00 | NUR ---
SECURITY MONITOR NOTES: RECEIVED PATIENT VIA GURNEY FROM ER ON STABLE CONDITION, TRANSFER TO BED, BED IN LOW POSITION CALL LIGHTS WITHIN REACH, NO COMPLAIN OF PAIN AND DISCOMFORT AT THIS TIME ON O2 INAHALATION AT 2LPM SATURATING WELL, WITH IV LINE AT LEFT HAND #20 WITH ONGOING 0.9NSS@75ML/HR INFUSING WELL, SKIN ASSESSMENT DONE PICTURED AND DOCUMENTED, INVENTORIES DONE AND SIGNED, PATIENT IS A/OX4 ABLE TO EXPRESS NEEDS, ORIENTED TO ROOM, REMIND TO USE CALL LIGHTS WHEN NEEDED ASSISTANCE, ON NPO,, PATIENT KEPT CLEAN AND DRY ALL NEEDS MET WILL CONTINUE TO MONITOR.
--- NOTE | 2022-01-20 23:03 | NUR ---
RN NOTES: FLEET ENEMA TO INDUCED BOWEL MOVEMENT NOT GIVEN PATIENT MADE A LARGE VOLUME OF BOWEL MOVEMENT DURING ADMISSION TO ROM M CLEANSE AND LINEN REPLACED.
--- NOTE | 2022-01-20 23:06 | NUR ---
RN NOTES: MEDICATION NOT GIVEN PATIENT ON NPO.
[2022-01-20 23:21] LABS: ALANINE AMINOTRANSFERASE 16 U/L (12-78); ALBUMIN 3.8 g/dL (3.4-5.0); ALKALINE PHOSPHATASE 70 U/L (46-116); ASPARTATE AMINOTRANSFERASE 15 U/L (15-37); BILIRUBIN,DIRECT 0.2 mg/dL (0.0-0.2); LIPASE 161 U/L (73-393); TOTAL PROTEIN, SERUM 7.7 g/dL (6.4-8.2)
[2022-01-20] MEDS: IV NS 0.9% 1,000 ML IV PRN (23:24)
[2022-01-21 06:15] LABS: CALCIUM, SERUM 8.5 mg/dL (8.5-10.1); CARBON DIOXIDE 27 mmol/L (21-32); CHLORIDE 107 mmol/L (98-107); CREATININE 0.9 mg/dL (0.6-1.3); GLUCOSE 128 mg/dL (74-106); LIPASE 105 U/L (73-393); MAGNESIUM 2.1 mg/dL (1.8-2.4); PHOSPHORUS 4.3 mg/dL (2.5-4.9); POTASSIUM 2.9 mmol/L (3.5-5.1); SODIUM SERUM 141 mmol/L (136-145); UREA NITROGEN, BLOOD 15 mg/dL (7-18)
--- NOTE | 2022-01-21 06:23 | NUR ---
RN NOTES: PATIENT WAS TOO SLEEPY ATTEMPT TO DO SWALLOW EVALUATION.
--- NOTE | 2022-01-21 06:28 | NUR ---
RN CLOSING NOTES: RECEIVED PATIENT SLEEP IN BED COMFORTABLY, AROUSABLE TO TACTILE STIMULI, BED IN LOW POSITION CALL LIGHTS WITHIN REACH, NO COMPLAIN OF PAIN AND DISCOMFORT AT THIS TIME. ON O2 INHALATION AT 2LPM SATURATING WELL, PATIENT IS A/OX 3-4 ABLE TO MAKE NEEDS KNOWN, TO REMAIN NPO UNTIL FURTHER SWALLOW EVALUATION, WITH IV LINE AT LEFT HAND #20 WITH ONGOING 0.9NSS@75ML/HR INFUSING WELL, PATIENT KEPT CLEAN AND DRY ALL NEEDS MET, ENDORSE TO INCOMING SHIFT.
[2022-01-21 06:50] LABS: BASOPHILS % (AUTO) 0.2 % (0.0-2.0); EOSINOPHILS % (AUTO) 0.2 % (0.0-6.0); HEMATOCRIT 35 % (39-51); HEMOGLOBIN 11.9 g/dL (13.5-17.5); LYMPHOCYTES # (AUTO) 0.5 K/uL (0.8-4.8); LYMPHOCYTES % (AUTO) 6.8 % (20.0-44.0); MEAN CORPUSCULAR HGB CONC 34 g/dl (31.0-36.0); MEAN CORPUSCULAR VOLUME 83 fL (80-96); MONOCYTES # (AUTO) 0.8 K/uL (0.1-1.30); MONOCYTES % (AUTO) 10.4 % (2.0-12.0); NEUTROPHILS # (AUTO) 6.5 K/uL (1.8-8.9); NEUTROPHILS % (AUTO) 82.4 % (43.0-81.0); PLATELET COUNT (AUTO) 195 K/uL (150-450); RED BLOOD CELL COUNT(AUTO) 4.21 MIL/uL (4.5-6.0); WHITE BLOOD COUNT (AUTO) 7.9 K/uL (4.3-11.0)
--- NOTE | 2022-01-21 07:44 | NUR ---
MS RN OPENING NOTES: RECEIVED PATIENT ASLEEP BUT EASILY AWAKEN; A/OX4 ABLE TO EXPRESS NEEDS. PT IS ON O2 AT 2LPM VIA NC, NO S/S OF SOB AND ACUTE DISTRESS NOTED. DENIES PAIN AT THIS TIME. IV ACCESS AT LEFT HAND #20 RUNNING NS @75ML/HR INFUSING WELL. CURRENTLY NPO, PENDING SWALLOW EVAL. SAFETY MEASURES IN PLACE, CALL LIGHT TABLE WITHIN REACH, WILL CONT PLAN OF CARE FOR PATIENT DURING SHIFT.
[2022-01-21 08:00] VITALS: BP 148/75
[2022-01-21] MEDS: hydrALAZINE HCL 50 MG TABLET PO SCH ×2 (08:41→21:51)
[2022-01-21] MEDS: CARVEDILOL 12.5 MG TABLET PO SCH ×2 (08:44→21:52)
[2022-01-21] MEDS: VALSARTAN 80 MG TABLET PO SCH (08:44)
[2022-01-21] MEDS: BACLOFEN (10 MG) 10 MG TABLET PO SCH ×3 (08:44→17:04)
[2022-01-21] MEDS: PANTOPRAZOLE 40 MG VIAL IV SCH (08:45)
[2022-01-21] MEDS: DULOXETINE HCL 30 MG CAPSULE.DR PO SCH (08:45)
[2022-01-21] MEDS ORDERED: BUPROPION XL 150 MG TAB.ER.24 PO SCH ×2 (09:00)
[2022-01-21] MEDS: AMLODIPINE BESYLATE 10 MG TABLET PO SCH (10:01)
[2022-01-21] MEDS: POTASSIUM CL. PREMIX PERIPHER. 50 ML IV SCH ×6 (10:04→15:00)
[2022-01-21 12:28] LABS: BAND % (MANUAL) 7 % (0.0-5.0); BASOPHILS % (MANUAL) 0 % (0.0-2.0); EOSINOPHILS % (MANUAL) 0 % (0-4); LYMPHOCYTES % (MANUAL) 5 % (16-48); MONOCYTES % (MANUAL) 10 % (0-11.0); NEUTROPHILS % (MANUAL) 78 (42-76)
--- NOTE | 2022-01-21 15:00 | NUR ---
pt refused bag #5 of KCL, pt states " no more, it hurts". RN explained importance of completing full dose of MD orders, pt verbalized understanding but still declined. total KCL infused = 40MEQ
[2022-01-21 16:00] VITALS: BP 138/74
--- NOTE | 2022-01-21 18:55 | NUR ---
MS RN CLOSING NOTES: PATIENT AWAKE IN BED, FAMILY AT BEDSIDE. A/OX4, ABLE TO EXPRESS NEEDS. PT IS ON O2 AT 2LPM VIA NC, NO S/S OF SOB AND ACUTE DISTRESS NOTED. DENIES PAIN AT THIS TIME. IV ACCESS AT LEFT HAND, IVF PAUSED AT THE MOMENT PER PT REQUEST. SWALLOW EVAL DONE, PT ABLE TO SWALLOW. PATIENT STARTED ON REG DIET DURING SHIFT, TOLERATING WELL. ALL DUE MEDS GIVEN, MD ORDERS CARRIED OUT. KEPT PT CLEAN, COMFORTABLE AND DRY. SAFETY MEASURES IN PLACE, CALL LIGHT TABLE WITHIN REACH, WILL ENDORSE TO PM SHIFT FOR CONTINUITY OF CARE.
--- NOTE | 2022-01-21 19:20 | NUR ---
RN OPENING NOTE PATIENT IN BED, AWAKE. PATIENT IS ABLE TO MAKE NEEDS KNOWN. A/O X 2-3. PATIENT ON 2 LPM O2 SUPPLEMENTATION VIA NC. PATIENT HAS A L HAND 20 G, SALINE LOCKED ONLY. PATIENT DOES NOT WANT THE IVF ON AT THIS TIME. PATIENT DOES NOT REPORT ANY PAIN. SAFETY MEASURES IN PLACE: BED LOCKED AND IN LOWEST POSITION, CALL LIGHT WITHIN REACH, SIDE RAILS UP. WILL MONITOR PATIENT CLOSELY.
[2022-01-21 20:00] VITALS: BP 135/69
[2022-01-21] MEDS: TAMSULOSIN 0.4 MG CAP.SR.24H PO SCH (21:51)
[2022-01-21] MEDS: ATORVASTATIN 40 MG TABLET PO SCH (21:51)
[2022-01-22] MEDS: IV NS 0.9% 1,000 ML IV PRN (05:30)
--- NOTE | 2022-01-22 06:43 | NUR ---
RN CLOSING NOTE PATIENT IN BED, EYES CLOSED, SLEEPING. PATIENT IS ABLE TO MAKE NEEDS KNOWN. A/O X 2-3. PATIENT ON 2 LPM O2 SUPPLEMENTATION VIA NC. PATIENT HAS A L HAND 20 G, RUNNING NS AT 75 ML/HR. PATIENT DOES NOT REPORT ANY PAIN. PATIENT NOT IN ANY APPARENT DISTRESS. SAFETY MEASURES IN PLACE: BED LOCKED AND IN LOWEST POSITION, CALL LIGHT WITHIN REACH, SIDE RAILS UP. ALL NEEDS MET AND ATTENDED. ALL ORDERS CARRIED OUT. WILL ENDORSE TO DAY SHIFT NURSE FOR CIARA.
--- NOTE | 2022-01-22 07:30 | NUR ---
MS RN OPENING NOTES RECEIVED PATIENT ON BED AWAKE AND A/O X3. ON O2 AT 2LPM VIA NASAL CANNULA TOLERATING WELL. NO SOB NOTED. NOT IN DISTRESS. WITH NO COMPLAINTS OF PAIN OR DISCOMFORT AT THIS TIME. WITH IV ACCESS AT THE LEFT HAND G20 WITH IVF NS AT 75ML/HR INFUSING WELL. SAFETY MEASURES IN PLACED. CALL LIGHT WITHIN REACH. BED ON LOWEST LOCKED POSITION, SIDE RAILS UP X2. WILL CONTINUE TO MONITOR.
[2022-01-22 08:05] LABS: CALCIUM, SERUM 8.3 mg/dL (8.5-10.1); CREATININE 0.9 mg/dL (0.6-1.3); POTASSIUM 3.1 mmol/L (3.5-5.1)
[2022-01-22] MEDS ORDERED: BUPROPION XL 150 MG TAB.ER.24 PO SCH ×2 (08:20→09:30)
[2022-01-22] MEDS: hydrALAZINE HCL 50 MG TABLET PO SCH (08:23)
[2022-01-22] MEDS: VALSARTAN 80 MG TABLET PO SCH (08:24)
[2022-01-22] MEDS: PANTOPRAZOLE 40 MG VIAL IV SCH (08:24)
[2022-01-22] MEDS: DULOXETINE HCL 30 MG CAPSULE.DR PO SCH (08:24)
[2022-01-22 08:25] VITALS: BP 132/71
[2022-01-22] MEDS: CARVEDILOL 12.5 MG TABLET PO SCH (08:25)
[2022-01-22] MEDS: AMLODIPINE BESYLATE 10 MG TABLET PO SCH (08:25)
[2022-01-22] MEDS: BACLOFEN (10 MG) 10 MG TABLET PO SCH ×2 (08:25→12:04)
[2022-01-22 11:09] LABS: BASOPHILS % (AUTO) 0.4 % (0.0-2.0); EOSINOPHILS % (AUTO) 3.7 % (0.0-6.0); HEMATOCRIT 34 % (39-51); HEMOGLOBIN 11.4 g/dL (13.5-17.5); LYMPHOCYTES # (AUTO) 1.1 K/uL (0.8-4.8); LYMPHOCYTES % (AUTO) 14.8 % (20.0-44.0); MEAN CORPUSCULAR HGB CONC 34 g/dl (31.0-36.0); MEAN CORPUSCULAR VOLUME 84 fL (80-96); MONOCYTES # (AUTO) 1.1 K/uL (0.1-1.30); MONOCYTES % (AUTO) 15.8 % (2.0-12.0); NEUTROPHILS # (AUTO) 4.7 K/uL (1.8-8.9); NEUTROPHILS % (AUTO) 65.3 % (43.0-81.0); PLATELET COUNT (AUTO) 196 K/uL (150-450); RED BLOOD CELL COUNT(AUTO) 4.01 MIL/uL (4.5-6.0); WHITE BLOOD COUNT (AUTO) 7.2 K/uL (4.3-11.0)
[2022-01-22 11:23] LABS: BAND % (MANUAL) 2 % (0.0-5.0); EOSINOPHILS % (MANUAL) 5 % (0-4); LYMPHOCYTES % (MANUAL) 14 % (16-48); MONOCYTES % (MANUAL) 19 % (0-11.0); NEUTROPHILS % (MANUAL) 60 (42-76)
[2022-01-22] MEDS ORDERED: POTASSIUM CHLORIDE 20 MEQ TAB.PRT.SR PO SCH (12:00)
--- NOTE | 2022-01-22 15:04 | NUR ---
RN NOTE CALLED [facility] AT [phone] AND GIVEN REPORT TO LOC MURILLO. PICK-UP TIME IS AT 1600.
--- NOTE | 2022-01-22 16:47 | NUR ---
ELECTRO MECHANIC NOTES PATIENT WAS ORDERED FOR DISCHARGE BY CHRISTINE BOURNE NP. PATIENT IS FOR DISCHARGE TO [facility]. GIVEN REPORT TO LOC MURILLO FROM [facility]. DISCHARGE INSTRUCTION AND MEDICATION INSTRUCTIONS PROVIDED TO THE PATIENT. PATIENT VERBALIZED UNDERSTANDING. IV LINE AND NAME WRIST BAND REMOVED. DISCHARGE FORM AND BELONGINGS LIST FORM SIGNED BY PATIENT. PICKED UP BY AMBULANCE PERSONNEL IN STABLE CONDITION VIA GURNEY. MD AND CHARGE NURSE ARE AWARE OF THE DISCHARGE.
[2022-01-23] MEDS ORDERED: PANTOPRAZOLE 40 MG TABLET.DR PO SCH (09:00)
== END 2022-01-22 16:50 | DRG 388 ==
LOC: ER 14:08 → TELE 21:31 → MED 22:03
PROVIDERS: ADMIT Nurse Practitioner Acute Care; ATTEND Nurse Practitioner Acute Care
DX: K56.7 Ileus, unspecified (principal); G93.41 Metabolic encephalopathy; G12.21 Amyotrophic lateral sclerosis; E87.6 Hypokalemia; N21.0 Calculus in bladder; Z20.822 Contact with and (suspected) exposure to COVID-19; I10 Essential (primary) hypertension; Z79.899 Other long term (current) drug therapy; N28.1 Cyst of kidney, acquired; E78.5 Hyperlipidemia, unspecified; E66.9 Obesity, unspecified; N40.0 Benign prostatic hyperplasia without lower urinary tract symptoms; Z68.33 Body mass index [BMI] 33.0-33.9, adult; E11.65 Type 2 diabetes mellitus with hyperglycemia; F20.9 Schizophrenia, unspecified
CPT/HCPCS: 36415; 71045-TC; 80048-TC; 80076-TC; 83605-TC; 83690-TC; 83735-TC; 84100-TC; 84484-TC; 85025-TC; 85730-TC; 92526; 92611-TC; C9113; C9803; G0378; J2405; J3480; J3490; J7030; J7040